=== PATIENT | female | born 1985 | race Caucasian/White ===

== ENCOUNTER 2019-06-11 13:34 | Outpatient (CLI) | payer OTHER, SELFPAY ==
--- NOTE | ~2019-06-11 | XR_ITS ---
XR thoracic spine 2V DATE: 06/11/2019 14:04 INDICATION: Back pain for 2 weeks TECHNIQUE: AP, lateral, swimmer views COMPARISON: None FINDINGS: There is minimal dextroscoliosis. No fracture or dislocation or bone destruction. The thoracic pedicles are intact. No paraspinal soft tissue thickening. IMPRESSION: Minimal dextroscoliosis Reviewed, dictated and finalized at location B. [employer] APPRAISER IMPRESSION: Minimal dextroscoliosis
== END 2019-06-11 13:35 | disposition home or self-care (01) ==
LOC: ANHIMG 13:39
PROVIDERS: PCP Family Medicine; Visit Provider Nurse Practitioner Family
DX: M54.9 Dorsalgia, unspecified (principal)
CPT/HCPCS: 72070

== ENCOUNTER → 2021-06-01 02:07 | Outpatient (CLI) | payer OTHER, SELFPAY ==
[2021-06-01 19:02] LABS: SARS-CoV-2 RNA PCR Negative
== END ==
PROVIDERS: PCP Family Medicine; Visit Provider Nurse Practitioner Family
DX: R68.89 Other general symptoms and signs (principal); Z20.822 Contact with and (suspected) exposure to COVID-19
CPT/HCPCS: C9803; U0003; U0005

== ENCOUNTER 2021-11-02 15:37 | Outpatient (CLI) | payer OTHER, SELFPAY ==
--- NOTE | ~2021-11-02 | XR_ITS ---
XR foot LT 2V DATE: 11/02/2021 15:59 INDICATION: Left foot pain TECHNIQUE: AP and lateral views COMPARISON: None FINDINGS: No fracture or dislocation, periosteal reaction or bone destruction. IMPRESSION: Negative Reviewed, dictated and finalized at location B. IMPRESSION: Negative
== END 2021-11-02 15:38 | disposition home or self-care (01) ==
PROVIDERS: PCP Family Medicine; Visit Provider Nurse Practitioner Family
DX: M79.672 Pain in left foot (principal)
CPT/HCPCS: 73620

== ENCOUNTER 2022-02-14 08:39 | Emergency (ER) | payer OTHER, SELFPAY ==
--- NOTE | 2022-02-14 08:45 | ED.DENTAL ---
HPI - Dental/Oral General Chief complaint: Dental/Oral Stated complaint: dental pain Time Seen by Provider: 02/14/22 08:45 Source: patient Mode of arrival: ambulatory Limitations: no limitations History of Present Illness HPI Narrative: Ms. Mendosa is a 36-year-old female patient presenting to the clinic today with complaints of dental pain. She reports on Tuesday she had some teeth extracted to the right upper jaw. Had a sneezing fit yesterday and this caused some severe pain to the area of the right upper premolar. Has 2 stitches in her right upper gum that are intact currently. States she has been taking Tylenol and Motrin [id number] as well as putting topical gel and ice to the affected area without relief. Reports pain is currently a 7 out of 10. She states she did not sleep very well last night due to the pain Related Data Home Medications Medication Instructions Recorded Confirmed etonogestrel 68 mg subdermal 1 implant subdermal ONCE 03/28/19 02/14/22 implant (Nexplanon) levocetirizine 5 mg tablet (Xyzal) 5 mg PO DAILY 02/14/22 02/14/22 Allergies Allergy/AdvReac Type Severity Reaction Status Date / Time acetaminophen Allergy Severe CP Verified 02/14/22 08:49 codeine Allergy Severe CP Verified 02/14/22 08:49 Review of Systems Review of Systems: Pertinent positives per HPI. Patient denies any fever, chills, rash, headache, visual changes, dizziness, cough, runny nose, sore throat, shortness of breath, chest pain, palpitations, nausea, vomiting, diarrhea, constipation, abdominal pain, or any urinary issues. [facility] Past Medical History Medical History BMI 45.0-49.9, adult BMI 50.0-59.9, adult BMI greater than 40 Morbid (severe) obesity due to excess calories Family History Family History Father Malignant neoplasm of prostate Hypertension Mother Hypertension Sibling Hypertension Other Family history of lung cancer Family history of malignant neoplasm of breast Family history of type 2 diabetes mellitus Social History Social History Smoking status: Never smoker Tobacco type: cigarettes Second hand tobacco smoke exposure: No Alcohol intake: current Drinks per week: 0 Alcohol use details: rarely Substance use: never Substance use type: does not use Additional occupation/education comments: [employer] Gender identity (if verbalized by the patient): Female Comments At the time of my signature, I reviewed and agree with the nursing past medical, surgical, social, and family history. There is no relevant family history pertinent to the patient complaint. Exam Narrative: General: Well-developed, well nourished, in no apparent distress Head: Normocephalic, atraumatic Eyes: Pupils equally round and reactive to light bilaterally, EOM intact, sclera and conjunctive clear, no discharge, lids normal Ears: TMs intact and clear, ear canals clear, no drainage, grossly hearing normal. Nose: Nares patent, no discharge, no inflammation, no sinus tenderness. Mouth: Oropharynx without lesions or masses, very poor dentition, halitosis, gum swelling to the right upper jaw-pain to the area of the right upper premolar, MMM. 2 intact sutures to the right upper gum Neck: Supple, trachea midline, no enlargement of anterior or posterior cervical nodes, no thyroid masses or goiter palpable. Cardio: Regular rate and rhythm, s1 and s2 normal, no murmur appreciated. Resp: Clear to auscultation bilaterally anteriorly and posteriorly, no rhonchi, rales, wheezing or rubs Course Course Emergency Course: Portions of this record may have been created with voice recognition software. Level of Care: Express Care Visit Vital Signs Vital signs: Vital Signs Temperature 36.6 C 02/14/22 08:50
[2022-02-14 08:50] VITALS: BP 154/103; PULSE 79; RESP 20; TEMP 36.6; O2SAT 100
[2022-02-14 08:51] VITALS: BP 154/103; PULSE 79; RESP 20; TEMP 36.6; O2SAT 100
== END 2022-02-14 09:13 | disposition home or self-care (01) ==
PROVIDERS: Emergency Provider Nurse Practitioner Family; PCP Family Medicine
DX: K08.89 Other specified disorders of teeth and supporting structures (principal)
CPT/HCPCS: 64999; 99213; G0463

== ENCOUNTER 2022-06-28 09:56 | Emergency (ER) | payer OTHER, SELFPAY ==
--- NOTE | ~2022-06-28 | XR_ITS ---
EXAMINATION: XR chest 2V 06/28/2022 10:37 INDICATION: Chest pain PROCEDURE: 2 view chest COMPARISON: No prior studies for comparison. FINDINGS: The lungs are clear. The cardiomediastinal silhouette is within normal limits. There are no pleural effusions. There is no pneumothorax suspected. IMPRESSION: 1: NO ACUTE CARDIOPULMONARY DISEASE. Reviewed, dictated and finalized at location B. [employer] TRAVEL COUNSELOR
--- NOTE | 2022-06-28 09:57 | ECG_ITS ---
Measurements Intervals [place] Rate: 81 P: 47 MN: 151 QRS: -21 QRSD: 91 T: 23 QT: 358 QTc: 417 Interpretive Statements SINUS RHYTHM WITH SINUS ARRHYTHMIA BORDERLINE LEFT AXIS DEVIATION [QRS AXIS < -20] POOR R-WAVE PROGRESSION BORDERLINE ECG NO PREVIOUS ECG AVAILABLE FOR COMPARISON Electronically Signed On 06-28-2022 12:49:17 ONLINE PRODUCER by Jacob Nix M.D.
[2022-06-28 10:16] VITALS: BP 142/84; PULSE 80; RESP 16; TEMP 37; O2SAT 97
[2022-06-28 10:18] LABS: Basophils Absolute Auto 0.1 K/mm3 (0.0-0.1); Basophils Percent Auto 0.7 % (0.2-1.2); Eosinophils Absolute Auto 1.1 K/mm3 (0-0.3); Eosinophils Percent Auto 10.1 % (0-4.4); Hemoglobin 14.9 g/dL (12.0-15.0); Immature Granulocyte Absolute 0.04 K/mm3 (0.00-0.031); Immature Granulocyte Percent A 0.4 % (0-0.5); Lymphocytes Absolute Auto 3.03 K/mm3 (0.9-3.2); Lymphocytes Percent Auto 26.7 % (18.3-44.2); Mean Corpuscular HGB Conc 34.7 g/dl (32-36); Mean Corpuscular Volume 89.6 fl (80-100); Mean Platelet Volume 9.6 fl (7.4-10.4); Monocytes Absolute Auto 0.5 K/mm3 (0.1-0.6); Monocytes Percent Auto 4.6 % (2.6-8.5); Neutrophils Absolute Auto 6.5 K/mm3 (1.3-6.7); Neutrophils Percent Auto 57.5 % (45.5-73.1); Platelet Count Result 285 k/mm3 (150-375); White Blood Count 11.3 K/mm3 (4.5-10.0)
[2022-06-28 10:29] LABS: Alanine Aminotransferase 19 U/L (6-35); Albumin Level 4.1 g/dL (3.5-5.1); Alkaline Phosphatase 68 U/L (38-126); Anion Gap 6 mmol/L (8-16); Aspartate Amino Transferase 22 U/L (14-36); Bilirubin,Total 0.4 mg/dL (0.2-1.3); Blood Urea Nitrogen 12 mg/dL (7-17); Calcium 8.5 mg/dL (8.4-10.2); Carbon Dioxide 25 mmol/L (22-30); Chloride 108 mmol/L (98-107); Estimated CRCL calculation 137 ml/min; Estimated Glomerular Filt Rate > 60; Glucose 90 mg/dL (65-110); Lipase 52 U/L (23-300); Potassium 3.3 mmol/L (3.4-5.0); Prothrombin Time 12.9 Seconds (11.1-14.7); Sodium 139 mmol/L (137-145)
[2022-06-28 10:40] LABS: Troponin I < 0.012 ng/mL (0.000-0.034)
--- NOTE | 2022-06-28 12:34 | ED.CHESTPAIN ---
HPI - Chest Pain General Chief Complaint: Chest Pain Stated Complaint: Chest Pain for a week, nausea Time Seen by Provider: 06/28/22 12:34 Source: patient History of Present Illness HPI narrative: 37 years old white female, 138 kg, history of bipolar and anxiety presents with intermittent left upper chest left upper back and left shoulder dull aching pain, worse with activity. Started 1 week ago. She denies any shortness of breath, fever, chills, coughing. Patient been taking Xanax without improvement. Related Data Home Medications Medication Instructions Recorded Confirmed etonogestrel 68 mg subdermal 1 implant subdermal ONCE 03/28/19 05/05/22 implant (Nexplanon) fexofenadine 180 mg tablet 180 mg PO DAILY 04/27/22 05/05/22 (Marjorie Allergy) Allergies Allergy/AdvReac Type Severity Reaction Status Date / Time acetaminophen Allergy Severe CP Verified 06/28/22 10:20 codeine Allergy Severe CP Verified 06/28/22 10:20 Review of Systems Review of Systems: All systems reviewed & are unremarkable except as noted in HPI and below PMFSH Past Medical History Medical History BMI 45.0-49.9, adult BMI 50.0-59.9, adult BMI greater than 40 Morbid (severe) obesity due to excess calories Obesity, morbid, BMI 40.0-49.9 Family History Family History Father Malignant neoplasm of prostate Hypertension Mother Hypertension Sibling Hypertension Other Family history of lung cancer Family history of malignant neoplasm of breast Family history of type 2 diabetes mellitus Social History Social History Smoking status: Never smoker Tobacco type: cigarettes Second hand tobacco smoke exposure: No Alcohol intake: current Drinks per week: 0 Alcohol use details: rarely Substance use: never Substance use type: does not use Living arrangements: with family Occupation/Education: occupation Additional occupation/education comments: [employer] Gender identity (if verbalized by the patient): Female Exam Narrative: General appearance: Well-developed, well-nourished Skin: Normal color Head: Normocephalic, nontraumatic Eyes: Clear conjunctiva ENT: Oropharynx normal, ears normal, nose normal Neck: Supple, nontender Chest and respiratory: Airway patent, no respiratory distress, no accessory muscle use Heart: Regular rate/rhythm Abdomen: Soft, nontender, no organomegaly, quiet bowel sounds Vascular: Normal peripheral pulses, normal capillary refill. Musculoskeletal: Diffuse tenderness to left upper chest, left upper back with palpation. 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 Date: 06/28/22 Time: 13:59 Vital Signs Vital signs: Vital Signs Temperature 37.0 C 06/28/22 10:16 Pulse Rate 80 06/28/22 10:16 Respiratory Rate 16 06/28/22 10:16 Blood Pressure 142/84 H 06/28/22 10:16 Pulse Oximetry 97 06/28/22 10:16 Oxygen Delivery Room Air 06/28/22 10:16 Temperature 37.1 C 06/28/22 12:41 Pulse Rate 70 06/28/22 12:42 Respiratory Rate 15 06/28/22 12:41 Blood Pressure 160/93 H 06/28/22 12:41 Pulse Oximetry 98 06/28/22 12:41 Oxygen Delivery Room Air 06/28/22 10:16 MDM - Chest Pain MDM Narrative Medical decision making narrative: Patient presents with left chest and left upper back bowel pain worse with activities. No trauma. Cardiac score is
[2022-06-28 12:41] VITALS: BP 160/93; PULSE 70; RESP 15; TEMP 37.1; O2SAT 98
[2022-06-28 12:42] VITALS: PULSE 70
[2022-06-28] MEDS: ASPIRIN 81 MG CHEWABLE TABLET 324 MG PO (13:08)
[2022-06-28 13:46] LABS: D Dimer 0.33 ug/mL (<0.48)
[2022-06-28 13:54] LABS: Troponin I < 0.012 ng/mL (0.000-0.034)
[2022-06-28] MEDS: KETOROLAC 30 MG/ML VIAL (*BKC) IV PUSH (14:01)
== END 2022-06-28 14:11 | disposition home or self-care (01) ==
PROVIDERS: Emergency Medicine; Emergency Provider Emergency Medicine; PCP Family Medicine
DX: R07.89 Other chest pain (principal); F41.9 Anxiety disorder, unspecified; F31.9 Bipolar disorder, unspecified; E66.01 Morbid (severe) obesity due to excess calories; Z68.42 Body mass index [BMI] 45.0-49.9, adult; R94.31 Abnormal electrocardiogram [ECG] [EKG]
CPT/HCPCS: 36415; 71046; 80053; 83690; 84484; 85025; 85380; 85610; 85730; 93005; 99284; A9270; J1885

== ENCOUNTER 2024-01-20 08:40 | Outpatient (CLI) | payer OTHER, SELFPAY ==
--- NOTE | ~2024-01-20 | XR_ITS ---
EXAMINATION: XR_CERV2-3V_CR DATE: 01/20/2024 09:04 INDICATION: Neck pain. TECHNIQUE: 3 views of cervical spine on 4 radiographs were obtained. COMPARISON: None. FINDINGS: There is kyphosis of cervical spine. There is 9 degrees levocurvature of cervicothoracic sp ine. Vertebral body heights are normal. There is mildly decreased disc height at C5-C6. The facet aurora nts are normal. No central canal stenosis or prevertebral soft tissue swelling. IMPRESSION: 1. Mild spondylosis at C5-C6. Reviewed, dictated and finalized at location A.
== END 2024-01-20 08:41 | disposition home or self-care (01) ==
PROVIDERS: PCP Family Medicine
DX: M47.892 Other spondylosis, cervical region (principal)
CPT/HCPCS: 72040

== ENCOUNTER 2024-01-23 09:26 | Emergency (ER) | payer OTHER, SELFPAY ==
--- NOTE | ~2024-01-23 | CT_ITS ---
CT cervical spine wo con Ordering provider: Frank Mojica MD History: . left sided neck pain . Comparison: None. Technique: CT of the cervical spine was performed without contrast. Sagittal and coronal reformatted images were also obtained and reviewed. Automated exposure control and iterative reconstruction lv hnique were employed. The dose-length product was 511.46 mGy-cm. FINDINGS: VERTEBRAE: No subluxation or acute fracture. The occipital condyles are intact. DISC SPACES: Normal. PARASPINOUS SOFT TISSUES: Normal. IMPRESSION: No acute osseous abnormality cervical spine. Reviewed, dictated and finalized at location A.
[2024-01-23 09:47] VITALS: BP 146/100; PULSE 91; RESP 19; TEMP 36.9; O2SAT 98
--- NOTE | 2024-01-23 11:01 | ED.GENADULT ---
HPI - General Adult General Chief complaint: Neck Pain/Injury Stated complaint: NECK PAIN HX PINCHED NERVE Time Seen by Provider: 01/23/24 10:44 History of Present Illness HPI narrative: 38-year-old female presented emergency department for evaluation for left-sided neck pain. Patient reports approximately a month ago she felt that she had slept wrong and injured her left lateral neck. Patient was started on some medications for pain control. Patient felt a last few days her pain is acutely worsened. Patient stated it felt like her neck needed to crack and she was attempting to crack her neck. Patient states that the pain has worsened over the last few days. Patient states he has not slept in the last few days due to the pain. Related Data Home Medications Medication Instructions Recorded Confirmed etonogestrel 68 mg subdermal 1 implant subdermal ONCE 03/28/19 10/15/22 implant (Nexplanon) fexofenadine 180 mg tablet 180 mg PO DAILY 01/20/24 01/20/24 (Marjorie Allergy) Allergies Allergy/AdvReac Type Severity Reaction Status Date / Time acetaminophen Allergy Severe CP Verified 01/23/24 10:25 codeine Allergy Severe CP Verified 01/23/24 10:25 Review of Systems Review of Systems: All systems reviewed & are unremarkable except as noted in HPI and below PMFSH Past Medical History Medical History BMI greater than 40 Morbid (severe) obesity due to excess calories Family History Family History Father Malignant neoplasm of prostate Hypertension Mother Hypertension Sibling Hypertension Other Family history of lung cancer Family history of malignant neoplasm of breast Family history of type 2 diabetes mellitus Social History Social History Smoking status: Never smoker Tobacco type: cigarettes Second hand tobacco smoke exposure: No Alcohol intake: current Drinks per week: 0 Alcohol use details: rarely Substance use: never Substance use type: does not use Living arrangements: with family Occupation/Education: occupation Additional occupation/education comments: [employer] Gender identity (if verbalized by the patient): Female Exam Narrative: APPEARANCE: Uncomfortable pain HEAD: normocephalic, atraumatic. EYES: PERRLA/EOMI, conjunctivae clear. NOSE: Normal no drainage EARS:TMS clear with good light reflex. THROAT: Pharynx clear, no exudate. NECK: Supple. No adenopathy, no masses. RESPIRATORY: Airway patent, respirations nonlabored. Clear to auscultation bilaterally, no rales, rhonchi, wheezing. CARDIOVASCULAR: Regular rate and rhythm without murmurs rubs or gallops. ABDOMINAL: Soft, nontender, nondistended, normal bowel sounds MUSCULOSKELETAL: Left muscular tenderness of left shoulder NEURO: Alert. Cranial nerves II through XII intact. Good gait. Good coordination SKIN: Warm, dry. Normal Color PSYCHIATRIC: Normal affect/mood. Course Course Emergency Course: Patient for pain was improved in the emergency department. Patient was discharged home with additional medications for pain control in addition to a Medrol Dosepak. Vital Signs Vital signs: Vital Signs Temperature 98.4 F 01/23/24 09:47 Pulse Rate 91 01/23/24 09:47 Respiratory Rate 19 01/23/24 09:47 Blood Pressure 146/100 H 01/23/24 09:47 Pulse Oximetry 98 01/23/24 09:47 Oxygen Delivery Room Air 01/23/24 09:47 Temperature 97.4 F L 01/23/24 11:44 Pulse Rate 74 01/23/24 11:44 Respiratory Rate 18 01/23/24 11:44 Blood Pressure 159/110 H 01/23/24 11:44 Pulse Oximetry 98 01/23/24 11:44 Oxygen Delivery Room Air 01/23/24 09:47 Medical Decision Making MDM Narrative Medical decision making narrative: 38-year-old female presents emergency department for evaluation for left lateral
[2024-01-23] MEDS: dexAMETHasone SOD PHOS INJ 10 MG/ML 1 ML VIAL IM (11:10)
[2024-01-23] MEDS: HYDROmorphone HCL INJ (*CRX) 1 MG/ML SYR IV PUSH (11:11)
[2024-01-23] MEDS: CYCLOBENZAPRINE HCL 10 MG TABLET PO (11:11)
[2024-01-23 11:44] VITALS: BP 159/110; PULSE 74; RESP 18; TEMP 36.3; O2SAT 98
[2024-01-23] MEDS: HYDROcodone/acetaminophen (*CRX) 5-325 MG TABLET 1 TAB PO (12:44)
[2024-01-23] MEDS: HYDROmorphone HCL INJ (*CRX) 1 MG/ML SYR 0.5 MG IV PUSH (12:44)
== END 2024-01-23 13:11 | disposition home or self-care (01) ==
PROVIDERS: Emergency Provider Emergency Medicine; PCP Family Medicine
DX: M54.12 Radiculopathy, cervical region (principal); E66.01 Morbid (severe) obesity due to excess calories; Z68.42 Body mass index [BMI] 45.0-49.9, adult
CPT/HCPCS: 72125; 96372; 96374; 96376; 99284; A9270; J1100; J1170